=== PATIENT | female | born 1950 | race Caucasian/White ===

== ENCOUNTER → 2023-09-26 10:36 | Outpatient (REF) | payer MEDICARE, OTHER, SELFPAY ==
[2023-09-26 12:04] LABS: % Basophils 0.6 % (0-2); % Eosinophils 4.3 % (0-6); % Immature Granulocytes 0.4 % (0-0.5); % Lymphocytes 36.2 % (20.5-51.1); % Monocytes 6.4 % (1.7-9.3); % Neutrophils 52.1 % (42.2-75.2); Absolute Eosinophils 0.2 10^3/uL (0-0.7); Absolute Lymphocytes 1.8 10^3/uL (1.2-3.4); Absolute Monocytes 0.3 10^3/uL (0.1-0.6); Absolute Neutrophils 2.5 10^3/uL (1.4-6.5); Hematocrit 38.9 % (37.0-47.0); Hemoglobin 12.6 g/dL (12.0-16.0); Mean Corp Hgb Conc. 32.4 g/dL (33.0-37.0); Mean Corpuscular Volume 89.6 fL (81.0-99.0); Mean Platelet Volume 10.8 fL (7.4-10.4); Nucleated Red Blood Cells % 0 %; Platelet Count 222 10^3/uL (130-400); Red Blood Cell Count 4.34 10^6/uL (4.20-5.40); Red Cell Dist. Width 13.2 % (11.5-14.5); White Blood Cell Count 4.9 10^3/uL (4.8-10.8)
[2023-09-26 12:12] LABS: ALT (SGPT) 29 U/L (0-35); AST (SGOT) 32 U/L (14-36); Albumin 3.7 g/dl (3.5-5.0); Alkaline Phosphatase 105 U/L (38-126); Blood Urea Nitrogen 19 mg/dl (7-17); Calcium 9.2 mg/dl (8.4-10.2); Carbon Dioxide 30 mmol/L (22-30); Chloride 104 mmol/L (98-107); Glucose 89 mg/dl (70-99); Iron 83 ug/dl (37-170); Potassium 4.5 mmol/L (3.5-5.1); Sodium 136 mmol/L (135-145); Total Bilirubin 0.8 mg/dl (0.2-1.3); Total Protein 6.6 g/dl (6.3-8.2); eGFR > 60.00
[2023-09-26 12:21] LABS: Percent Saturation 24 % (20-50); Total Iron Binding Capacity 342 ug/dl (265-497)
[2023-09-26 12:40] LABS: Free T4 0.87 ng/dl (0.78-2.19)
[2023-09-26 12:54] LABS: TSH 1.45 uIU/ml (0.47-4.68)
[2023-09-26 13:23] LABS: Ferritin 22.8 ng/ml (11.1-264.0)
[2023-09-26 13:37] LABS: Vitamin B12 886 pg/ml (239-931)
== END ==
LOC: REG 10:36
PROVIDERS: ATTENDING PHYSICIAN Nurse Practitioner Family; FAMILY PHYSICIAN Internal Medicine Geriatric Medicine; REFERRING PHYSICIAN Obstetrics & Gynecology
DX: I83.891 Varicose veins of right lower extremity with other complications (principal); Z63.0 Problems in relationship with spouse or partner; E55.9 Vitamin D deficiency, unspecified; K76.89 Other specified diseases of liver; R53.83 Other fatigue; R19.7 Diarrhea, unspecified; S82.852A Displaced trimalleolar fracture of left lower leg, initial encounter for closed fracture
CPT/HCPCS: 36415; 80053; 82607; 82728; 83540; 83550; 84439; 84443; 85025

== ENCOUNTER → 2023-11-12 10:34 | Outpatient (REF) | payer MEDICARE, OTHER, SELFPAY | LOC: RCS 10:34 | PROVIDERS: ATTENDING PHYSICIAN Internal Medicine Cardiovascular Disease; FAMILY PHYSICIAN Internal Medicine | DX: R00.2 Palpitations (principal); I95.1 Orthostatic hypotension; I49.1 Atrial premature depolarization; I49.8 Other specified cardiac arrhythmias | CPT/HCPCS: 93017; 93350 ==

== ENCOUNTER → 2024-03-06 10:14 | Emergency (ER) | payer MEDICARE, OTHER, SELFPAY ==
[2024-03-06 10:20] VITALS: BP 135/62
--- NOTE | 2024-03-06 10:56 | ED.GENMED ---
History of Present Illness
General
Chief Complaint: Musculo-Skeletal Complaint
Source: patient
Time Seen by Provider: 03/06/24 10:30
History of Present Illness
History of Present Illness:
74-year-old female presenting to the emergency department for evaluation after tripping and injuring her right foot yesterday while playing with her grandchildren now noting pain along the distal fifth metatarsal and fifth digit. Pain worsens when
ambulating. Patient denies any previous history of injury or surgery. No other injuries sustained.
Past History
Past History
ED Past Medical History: None
ED Past Surgical History: , Orthopedic, Tonsilectomy and Other
Social History
Tobacco: Non-smoker
Alcohol: None
Drug: None
Personal:
Living: with family
Review of Systems
Review of Systems
All Other Systems: ROS reviewed and negative except as documented in HPI and ROS
Phy Exam
Physical Exam
Physical Exam:
GENERAL: Alert , in no apparent distress
EYE: conjunctiva clear
Head: Normocephalic atraumatic
NECK: Supple,
ENT: mmm.
LUNGS: no acute respiratory distress
NEUROLOGICAL: Alert and oriented
SKIN: Warm and dry, skin intact.
MUSCULOSKELETAL: Right lower extremity: No obvious deformity, erythema, edema, ecchymosis, abrasions or lacerations. There is some very mild tenderness along the plantar surface of the distal fifth metatarsal. Patient allows for full range of
motion of the foot and ankle without any pain. No focal tenderness over the medial or lateral malleolus, base of the fifth metatarsal or proximal tib-fib region. No laxity of the calcaneal tendon. Easily palpable pedal and tibial pulses. Cap
refill less than 2 seconds.
PSYCH: Normal and appropriate interaction.
Scores
Heart Failure Risk
Heart Failure Risk Score: Not Applicable
Heart Score for Chest Pain Patients
STEMI patient?: Not applicable
Withdrawal Assessment of Alcohol
Withdrawal Assessment Completed?: Not applicable
Course
Orders/Labs/Results
Orders:
Orders
03/06/24 10:24
CR Foot - Right Min 3 Views Urgent
Comment:
Reason For Exam: fall
Vital Signs
Initial and Last Documented VS:
Initial Vital Signs
Temp Pulse Resp BP Pulse Ox
97.8 F 60 19 135/62 100
03/06/24 10:20 03/06/24 10:20 03/06/24 10:20 03/06/24 10:20 03/06/24 10:20
Last Documented Vital Signs
Temp Pulse Resp BP Pulse Ox
97.8 F 60 19 135/62 100
03/06/24 10:20 03/06/24 10:20 03/06/24 10:20 03/06/24 10:20 03/06/24 10:20
MDM/Problems Addressed
Differential Diagnosis Includes:
Sprain, contusion, fracture
MDM/Problems Addressed:
74-year-old female presenting to the emergency department for evaluation after tripping and injuring her right foot. Patient states pain worsens when ambulating. She came to the ER to ensure no fracture. X-ray had been ordered from triage and
there is no fracture identified however patient does have some fairly significant arthritic changes. Patient ambulates with a cane and states she feels comfortable doing this. Advised NSAIDs/Tylenol as needed for pain. Patient states she can
follow-up with her orthopedist as needed if pain persists. Aware of return precautions to the ER but otherwise stable for discharge home.
*Radiology
Radiology exam reviewed: preliminary read by ED provider (No fracture, degenerative changes noted)
*Pulse Oximetry
Patient hypoxic: no
*Critical Care Note
Total Time (30-74mins, 75-104mins- exclusive of procedures): Not Applicable
ED Attending Note
-
Portions of this chart may have been created with voice recognition software.� Occasional wrong word or��sound alike� substitutions may have occurred due to the inherent limitations of voice recognition software.
Discharge Plan
Departure
Patient Disposition: Home (Routine Discharge)
Date of Disposition: 03/06/24
Time of Disposition: 10:56
Patient with high blood pressure during this ER visit?: No
Discharge Problem:
Right foot sprain
Instructions: Sprain (DC)
Prescriptions:
No Action
multivitamin Tablet
1 tab PO DAILY Qty: 0
ascorbic acid (vitamin C) [Vitamin C] 500 MG tablet
1,000 mg PO DAILY
cranberry fruit 500 MG tablet,chewable
500 mg PO DAILY
LJacquesacidoph, paracasei,B. lactis 1 EACH capsule
1 ea PO DAILY
vitamin K2 45 mcg Capsule
50 mcg PO DAILY Qty: 0
Estroven Cmplt Menopause Rlf 4 MG tablet
1 tab PO DAILY
latanoprost 0.005 % drops
1 drp BOTH EYES HS
calcium carbonate 500 mg calcium (1,250 mg) Tablet
500 mg PO DAILY
cholecalciferol (vitamin D3) [Vitamin D3] 25 mcg (1,000 unit) Tablet
50 mcg PO DAILY
aspirin 325 mg tablet
325 mg PO DAILY Qty: 30 0RF
sennosides-docusate sodium [Senna Plus] 8.6-50 mg Tablet
1 tab PO BID Qty: 30 0RF
acetaminophen [Pain Relief ES (acetaminophen)] 500 mg Tablet
1,000 mg PO TID Qty: 100 0RF
oxycodone 5 mg Tablet
5 mg PO Q4HPRN PRN (Reason: moderate pain) Qty: 20 0RF
Referrals:
Daryl Lopez MD [Family Provider] -
Interventions
Interventions:
*Risk Screen - Suicide Last Done: 03/06/24 10:20
*General Assessment Last Done: 03/06/24 10:20
*Neglect/Abuse Screening Last Done: 03/06/24 10:20
Discharge Date and Time
Print Language: UPPER SORBIAN
== END | disposition home or self-care (01) ==
LOC: EMR 10:14
PROVIDERS: EMERGENCY PHYSICIAN Emergency Medicine; FAMILY PHYSICIAN Internal Medicine Geriatric Medicine
DX: S93.601A Unspecified sprain of right foot, initial encounter (principal); W01.0XXA Fall on same level from slipping, tripping and stumbling without subsequent striking against object, initial encounter; Y93.89 Activity, other specified; Z79.82 Long term (current) use of aspirin; Z88.1 Allergy status to other antibiotic agents; Z88.2 Allergy status to sulfonamides
CPT/HCPCS: 99283; 73630

== ENCOUNTER → 2024-04-12 09:40 | Outpatient (REF) | payer MEDICARE, OTHER, SELFPAY ==
[2024-04-12 10:56] LABS: % Basophils 0.7 % (0-2); % Eosinophils 2.5 % (0-6); % Immature Granulocytes 0.2 % (0-0.5); % Lymphocytes 34.3 % (20.5-51.1); % Monocytes 4.9 % (1.7-9.3); % Neutrophils 57.4 % (42.2-75.2); Absolute Eosinophils 0.1 10^3/uL (0-0.7); Absolute Lymphocytes 1.5 10^3/uL (1.2-3.4); Absolute Monocytes 0.2 10^3/uL (0.1-0.6); Absolute Neutrophils 2.5 10^3/uL (1.4-6.5); Hematocrit 39.4 % (37.0-47.0); Hemoglobin 12.8 g/dL (12.0-16.0); Mean Corp Hgb Conc. 32.5 g/dL (33.0-37.0); Mean Corpuscular Hgb 28.6 pg (27.0-31.0); Mean Corpuscular Volume 88.1 fL (81.0-99.0); Nucleated Red Blood Cells % 0 %; Platelet Count 169 10^3/uL (130-400); Red Blood Cell Count 4.47 10^6/uL (4.20-5.40); Red Cell Dist. Width 13.2 % (11.5-14.5); White Blood Cell Count 4.3 10^3/uL (4.8-10.8)
[2024-04-12 11:50] LABS: ALT (SGPT) 32 U/L (0-35); AST (SGOT) 42 U/L (14-36); Alkaline Phosphatase 75 U/L (38-126); Blood Urea Nitrogen 18 mg/dl (7-17); Calcium 9.4 mg/dl (8.4-10.2); Carbon Dioxide 29 mmol/L (22-30); Chloride 102 mmol/L (98-107); Glucose 88 mg/dl (70-99); Iron 97 ug/dl (37-170); Potassium 4.5 mmol/L (3.5-5.1); Sodium 138 mmol/L (135-145); Total Bilirubin 0.9 mg/dl (0.2-1.3); Total Protein 6.5 g/dl (6.3-8.2); eGFR > 60.00
[2024-04-12 11:59] LABS: Percent Saturation 30 % (20-50); Total Iron Binding Capacity 321 ug/dl (265-497)
[2024-04-12 12:06] LABS: Free T3 3.14 pg/ml (2.77-5.27)
[2024-04-12 12:24] LABS: Ferritin 31.2 ng/ml (11.1-264.0)
[2024-04-12 12:55] LABS: Vitamin B12 657 pg/ml (239-931)
[2024-04-13 18:14] LABS: Thyroglobulin 9.1 ng/mL (1.3-31.8); Thyroglobulin Antibodies <0.9 IU/mL (0.0-4.0)
== END ==
LOC: REG 09:40
PROVIDERS: ATTENDING PHYSICIAN Obstetrics & Gynecology; FAMILY PHYSICIAN Internal Medicine Geriatric Medicine
DX: E07.9 Disorder of thyroid, unspecified (principal); E55.9 Vitamin D deficiency, unspecified; D64.9 Anemia, unspecified; R89.9 Unspecified abnormal finding in specimens from other organs, systems and tissues; E53.9 Vitamin B deficiency, unspecified
CPT/HCPCS: 36415; 80053; 82306; 82607; 82728; 82746; 83540; 83550; 84432; 84443; 84481; 85025; 86376; 86800

== ENCOUNTER 2024-08-03 06:15 | Day surgery (SDC) | payer MEDICARE, OTHER, SELFPAY | END 2024-08-03 10:50 | disposition home or self-care (01) | LOC: GI 06:15 | PROVIDERS: ATTENDING PHYSICIAN Internal Medicine Gastroenterology | DX: Z12.11 Encounter for screening for malignant neoplasm of colon (principal); K57.30 Diverticulosis of large intestine without perforation or abscess without bleeding; K64.8 Other hemorrhoids; Z80.0 Family history of malignant neoplasm of digestive organs | CPT/HCPCS: G0105 ==

== ENCOUNTER → 2024-08-07 10:37 | Emergency (ER) | payer MEDICARE, OTHER, SELFPAY ==
--- NOTE | 2024-08-07 11:05 | ED.GENMED ---
ED Provider Triage
-
Patient seen by provider in Triage?: Seen in Triage
Attestation: A medical screening examination has been initiated by a qualified medical provider. Based on the assessment performed at this time, it has been determined that an emergent medical condition may exist and the patient has been informed
that further medical evaluation and possible additional diagnostic testing may be needed.
HPI: 74-year-old female presenting to the emergency department for evaluation at request of her primary care provider after she started to feel some palpitations earlier this morning around 3:30 AM and her Apple Watch monitor noticed she was in
atrial fibrillation which lasted until about 9 AM and broke. Patient follows with loftsman, Dr. Gan. She is not on any anticoagulants. Will check labs and EKG. Patient is otherwise currently hemodynamically stable
GENERAL: Alert , in no apparent distress
EYE: No visual abnormalities.
NECK: Trachea midline
ENT: No visible abnormalities.
LUNGS: No acute respiratory distress
NEUROLOGICAL: Alert and oriented
SKIN: Skin intact. No visible changes.
MUSCULOSKELETAL: Moving extremities normally
PSYCH: Normal and appropriate interaction.
This is a medical evaluation conducted in person to initiate diagnostic evaluation and provide initial therapeutics. Please see further documentation by the treating clinician.
History of Present Illness
General
Chief Complaint: Heart Rate Problem
Source: patient
Time Seen by Provider: 08/07/24 12:24
History of Present Illness
History of Present Illness:
74-year-old female presenting to the emergency department for evaluation after she had a electronic device tell her she went into atrial fibrillation around 3:30 AM which persisted until about 9 AM accompanied with palpitations and an abnormal
sensation in her chest which by the time she got to the arm and had fully resolved. She contacted her primary care provider who recommended she come to the ER for further evaluation. Patient denies any history of atrial fibrillation. She does not
take any anticoagulant medications. Denies chest pain, shortness of breath, diaphoresis, exertional dyspnea orthopnea. No recent illnesses. No recent travel. No other concerns.
Past History
Past History
ED Past Medical History: None
ED Past Surgical History: , Orthopedic, Tonsilectomy and Other
Social History
Tobacco: Non-smoker
Alcohol: None
Drug: None
Personal:
Living: with family
Review of Systems
Review of Systems
All Other Systems: ROS reviewed and negative except as documented in HPI and ROS
Phy Exam
Physical Exam
Physical Exam:
GENERAL: Alert , in no apparent distress
EYE: conjunctiva clear
NECK: Supple, no significant adenopathy.
ENT: o/p clr, mmm.
CARDIAC: Regular rate and rhythm
LUNGS: Clear breath sounds bilaterally, no acute respiratory distress, no wheezes/rales/rhonchi
NEUROLOGICAL: Alert and oriented
SKIN: Warm and dry, skin intact.
MUSCULOSKELETAL: well perfused.
PSYCH: Normal and appropriate interaction.
Scores
Heart Failure Risk
Heart Failure Risk Score: Not Applicable
Heart Score for Chest Pain Patients
STEMI patient?: Not applicable
Withdrawal Assessment of Alcohol
Withdrawal Assessment Completed?: Not applicable
Course
Orders/Labs/Results
Orders:
Orders
08/07/24 11:06
Electrocardiogram (*1) Urgent
Reason for Study: Atrial Fibrillation
EKG- Treatment ONCE
08/07/24 11:28
Complete Blood Count/With Diff Urgent
Comprehensive Metabolic Panel Urgent
Magnesium Urgent
TSH Urgent
Abnormal Lab Results
08/07/24
11:28
MCHC 32.8 L g/dL
(33.0-37.0)
MPV 10.8 H fL
(7.4-10.4)
BUN 21 H mg/dl
(7-17)
08/07/24 11:28
08/07/24 11:28
Vital Signs
Initial and Last Documented VS:
Initial Vital Signs
Temp Pulse Resp BP Pulse Ox
98.2 F 65 16 113/71 98
08/07/24 11:06 08/07/24 11:06 08/07/24 11:06 08/07/24 11:06 08/07/24 11:06
Last Documented Vital Signs
Temp Pulse Resp BP Pulse Ox
98.2 F 60 16 112/56 97
08/07/24 11:06 08/07/24 12:48 08/07/24 11:06 08/07/24 12:48 08/07/24 12:48
MDM/Problems Addressed
Differential Diagnosis Includes:
Atrial fibrillation or other cardiac dysrhythmia, PAC/PVC, electrolyte derangement
MDM/Problems Addressed:
74-year-old female presenting to the ER for evaluation of palpitations with her Apple watch or other device telling her she may be in atrial fibrillation. EKG performed which shows normal sinus rhythm with PACs. At this time patient is not
exhibiting any evidence for atrial fibrillation. Will check labs and monitor on telemetry. Discussed with patient that if she were in a paroxysmal atrial fibrillation her [id number] score would be 2 and there would be potential need for likely
anticoagulation however given that the event was not captured on a burn out scarfing operator or EKG that at this time we would potentially need to defer treatment and have her follow-up closely with her loftsman and would potentially need a Holter
monitor. Patient expressed understanding and agreed with this plan. Disposition pending labs and telemetry monitoring
*Pulse Oximetry
Patient hypoxic: no
*EKG
Interpreted by ED Provider?: Yes
Heart Rate: 61
Rate: normal
Rhythm: sinus and PAC's
[place]: normal axis
Ischemia: no ischemia
*Procurement Clerk Interpretation
Rate: normal
Rhythm: sinus
*Critical Care Note
Total Time (30-74mins, 75-104mins- exclusive of procedures): Not Applicable
Patient Management
Escalation/DeEscalation of care consider admission/obs:
Patient's EKG and workup is largely unremarkable outside of occasional PACs. This could potentially explain patient's symptoms however I did express to patient the importance of following up with her cardiology team as she will likely need a Holter
monitor. Chest pain hotline notified to expedite a follow-up for the patient. She is aware of return precautions. Stable for discharge home.
ED Attending Note
-
Portions of this chart may have been created with voice recognition software.� Occasional wrong word or��sound alike� substitutions may have occurred due to the inherent limitations of voice recognition software.
Discharge Plan
Departure
Patient Disposition: Home (Routine Discharge)
Date of Disposition: 08/07/24
Time of Disposition: 13:01
Patient with high blood pressure during this ER visit?: No
Discharge Problem:
Palpitations
Instructions: Palpitations (DC), Chest Pain DCA Follow Up
Prescriptions:
No Action
multivitamin Tablet
1 tab PO DAILY Qty: 0
ascorbic acid (vitamin C) [Vitamin C] 500 MG tablet
1,000 mg PO DAILY
cranberry fruit 500 MG tablet,chewable
500 mg PO DAILY
L.acidoph,paracasei,B.animalis 1 EACH capsule
1 ea PO DAILY
vitamin K2 45 mcg Capsule
50 mcg PO DAILY Qty: 0
Estroven Cmplt Menopause Rlf 4 MG tablet
1 tab PO DAILY
latanoprost 0.005 % drops
1 drp BOTH EYES HS
calcium carbonate 500 mg calcium (1,250 mg) Tablet
500 mg PO DAILY
cholecalciferol (vitamin D3) [Vitamin D3] 25 mcg (1,000 unit) Tablet
50 mcg PO DAILY
aspirin 325 mg tablet
325 mg PO DAILY Qty: 30 0RF
sennosides-docusate sodium [Senna Plus] 8.6-50 mg Tablet
1 tab PO BID Qty: 30 0RF
acetaminophen [Pain Relief ES (acetaminophen)] 500 mg Tablet
1,000 mg PO TID Qty: 100 0RF
oxycodone 5 mg Tablet
5 mg PO Q4HPRN PRN (Reason: moderate pain) Qty: 20 0RF
Referrals:
Daryl Lopez MD [Family Provider] -
Interventions
Interventions:
*Risk Screen - Suicide Last Done: 08/07/24 11:06
*Neglect/Abuse Screening Last Done: 08/07/24 11:06
Discharge Date and Time
Print Language: HEBREW
[2024-08-07 11:06] VITALS: BP 113/71
[2024-08-07 11:50] LABS: % Basophils 0.6 % (0-2); % Eosinophils 0.8 % (0-6); % Immature Granulocytes 0.2 % (0-0.5); % Lymphocytes 27.2 % (20.5-51.1); % Monocytes 5.5 % (1.7-9.3); % Neutrophils 65.7 % (42.2-75.2); Absolute Lymphocytes 1.4 10^3/uL (1.2-3.4); Absolute Monocytes 0.3 10^3/uL (0.1-0.6); Absolute Neutrophils 3.5 10^3/uL (1.4-6.5); Hematocrit 41.2 % (37.0-47.0); Hemoglobin 13.5 g/dL (12.0-16.0); Mean Corp Hgb Conc. 32.8 g/dL (33.0-37.0); Mean Corpuscular Hgb 29.5 pg (27.0-31.0); Mean Corpuscular Volume 90.2 fL (81.0-99.0); Mean Platelet Volume 10.8 fL (7.4-10.4); Nucleated Red Blood Cells % 0 %; Platelet Count 183 10^3/uL (130-400); Red Blood Cell Count 4.57 10^6/uL (4.20-5.40); White Blood Cell Count 5.3 10^3/uL (4.8-10.8)
[2024-08-07 11:58] LABS: ALT (SGPT) 31 U/L (0-35); AST (SGOT) 33 U/L (14-36); Albumin 4.2 g/dl (3.5-5.0); Alkaline Phosphatase 69 U/L (38-126); Blood Urea Nitrogen 21 mg/dl (7-17); Calcium 9.2 mg/dl (8.4-10.2); Carbon Dioxide 30 mmol/L (22-30); Chloride 103 mmol/L (98-107); Glucose 97 mg/dl (70-99); Magnesium 1.8 mg/dl (1.6-2.3); Potassium 4.5 mmol/L (3.5-5.1); Sodium 140 mmol/L (135-145); Total Protein 6.8 g/dl (6.3-8.2); eGFR > 60.00
[2024-08-07 12:29] LABS: TSH 1.57 uIU/ml (0.47-4.68)
[2024-08-07 12:48] VITALS: BP 112/56
== END | disposition home or self-care (01) ==
LOC: EMR 10:37
PROVIDERS: Physician Assistant Medical; EMERGENCY PHYSICIAN Emergency Medicine; FAMILY PHYSICIAN Internal Medicine Geriatric Medicine
DX: R00.2 Palpitations (principal); I48.91 Unspecified atrial fibrillation
CPT/HCPCS: 99283; 80053; 83735; 84443; 85025; 93005

== ENCOUNTER → 2024-08-25 07:46 | Outpatient (REF) | payer MEDICARE, OTHER, SELFPAY ==
[2024-08-25 09:36] LABS: Urine Albumin Negative (Neg - Trace); Urine Bilirubin Negative (Negative); Urine Character Clear (Clear); Urine Color Yellow; Urine Glucose Negative (Negative); Urine Ketone Negative (Negative); Urine Leukocyte Negative (Negative); Urine Nitrite Negative (Negative); Urine Occult Blood Negative (Negative); Urine Urobilinogen Negative (Neg - 1+)
[2024-08-25 09:42] LABS: % Basophils 0.5 % (0-2); % Eosinophils 0.9 % (0-6); % Immature Granulocytes 0.4 % (0-0.5); % Lymphocytes 26.4 % (20.5-51.1); % Monocytes 4.6 % (1.7-9.3); % Neutrophils 67.2 % (42.2-75.2); Absolute Eosinophils 0.1 10^3/uL (0-0.7); Absolute Lymphocytes 1.5 10^3/uL (1.2-3.4); Absolute Monocytes 0.3 10^3/uL (0.1-0.6); Absolute Neutrophils 3.8 10^3/uL (1.4-6.5); Hematocrit 42.5 % (37.0-47.0); Hemoglobin 13.6 g/dL (12.0-16.0); Mean Corpuscular Hgb 28.8 pg (27.0-31.0); Nucleated Red Blood Cells % 0 %; Platelet Count 176 10^3/uL (130-400); Red Blood Cell Count 4.72 10^6/uL (4.20-5.40); Red Cell Dist. Width 12.9 % (11.5-14.5); White Blood Cell Count 5.7 10^3/uL (4.8-10.8)
[2024-08-25 10:04] LABS: ALT (SGPT) 30 U/L (0-35); AST (SGOT) 32 U/L (14-36); Albumin 4.1 g/dl (3.5-5.0); Alkaline Phosphatase 70 U/L (38-126); Blood Urea Nitrogen 21 mg/dl (7-17); Calcium 9.3 mg/dl (8.4-10.2); Carbon Dioxide 29 mmol/L (22-30); Chloride 101 mmol/L (98-107); GGTP 22 U/L (12-43); Glucose 88 mg/dl (70-99); HDL Cholesterol 73 mg/dl; LDL Cholesterol, Calculated 120 mg/dl; Potassium 4.6 mmol/L (3.5-5.1); Sodium 139 mmol/L (135-145); Total Bilirubin 0.9 mg/dl (0.2-1.3); Total Cholesterol 204 mg/dl (50-199); Total Protein 6.8 g/dl (6.3-8.2); Triglyceride 55 mg/dl (10-149); Very Low Density Lipoprotein 11 mg/dl (0-30); eGFR > 60.00
[2024-08-25 10:29] LABS: TSH Reflex To Free T4 1.34 uIU/ml (0.47-4.68)
== END ==
LOC: REG 07:46
PROVIDERS: ATTENDING PHYSICIAN Internal Medicine Geriatric Medicine
DX: I10 Essential (primary) hypertension (principal); I83.891 Varicose veins of right lower extremity with other complications; E55.9 Vitamin D deficiency, unspecified; R53.83 Other fatigue; R19.7 Diarrhea, unspecified; I95.1 Orthostatic hypotension; R39.9 Unspecified symptoms and signs involving the genitourinary system; R00.2 Palpitations; Z99.89 Dependence on other enabling machines and devices; R30.0 Dysuria; Z13.89 Encounter for screening for other disorder
CPT/HCPCS: 36415; 80053; 80061; 81003; 82306; 82977; 84443; 85025

== ENCOUNTER → 2024-08-27 08:15 | Outpatient (REF) | payer MEDICARE, OTHER, SELFPAY | LOC: RCS 08:15 | PROVIDERS: ATTENDING PHYSICIAN Internal Medicine Cardiovascular Disease; FAMILY PHYSICIAN Internal Medicine Geriatric Medicine | DX: I34.1 Nonrheumatic mitral (valve) prolapse (principal) | CPT/HCPCS: 93306 ==

== ENCOUNTER → 2024-09-01 12:06 | Outpatient (REF) | payer MEDICARE, OTHER, SELFPAY | LOC: REG 12:06 | PROVIDERS: ATTENDING PHYSICIAN Internal Medicine Geriatric Medicine | DX: I10 Essential (primary) hypertension (principal); I83.891 Varicose veins of right lower extremity with other complications; E55.9 Vitamin D deficiency, unspecified; R53.83 Other fatigue; R19.7 Diarrhea, unspecified; I95.1 Orthostatic hypotension; R39.9 Unspecified symptoms and signs involving the genitourinary system; R00.2 Palpitations; Z99.89 Dependence on other enabling machines and devices; R30.0 Dysuria; Z13.89 Encounter for screening for other disorder | CPT/HCPCS: 81050; 83018 ==

== ENCOUNTER → 2024-10-22 11:03 | Outpatient (REF) | payer MEDICARE, OTHER, SELFPAY ==
[2024-10-22 14:21] LABS: Glycohemoglobin (HgbA1c) 5.8 % (4.0-5.6)
[2024-10-22 14:31] LABS: Free T4 0.94 ng/dl (0.78-2.19)
[2024-10-22 14:45] LABS: TSH 1.35 uIU/ml (0.47-4.68)
[2024-10-22 15:20] LABS: Folate > 20.0 ng/ml (2.76-20); Vitamin B12 828 pg/ml (239-931)
== END ==
LOC: REG 11:03
PROVIDERS: ATTENDING PHYSICIAN Internal Medicine Geriatric Medicine
DX: Z79.899 Other long term (current) drug therapy (principal); R53.83 Other fatigue; E03.9 Hypothyroidism, unspecified; D50.8 Other iron deficiency anemias
CPT/HCPCS: 36415; 82607; 82746; 83036; 84439; 84443

== ENCOUNTER → 2024-11-05 15:08 | Outpatient (REF) | payer MEDICARE, OTHER, SELFPAY | LOC: WDC 15:08 | PROVIDERS: ATTENDING PHYSICIAN Internal Medicine Geriatric Medicine | DX: Z12.31 Encounter for screening mammogram for malignant neoplasm of breast (principal) | CPT/HCPCS: 77063; 77067 ==

== ENCOUNTER 2024-12-26 05:28 | Emergency (ER) | payer MEDICARE, OTHER, SELFPAY ==
[2024-12-26] VITALS (20 sets, daily range): BP systolic 92–152; BP diastolic 49–100
[2024-12-26 05:53] LABS: % Basophils 0.6 % (0-2); % Eosinophils 2.2 % (0-6); % Immature Granulocytes 0.2 % (0-0.5); % Lymphocytes 47.1 % (20.5-51.1); % Monocytes 5.9 % (1.7-9.3); Absolute Eosinophils 0.1 10^3/uL (0-0.7); Absolute Lymphocytes 2.6 10^3/uL (1.2-3.4); Absolute Monocytes 0.3 10^3/uL (0.1-0.6); Absolute Neutrophils 2.4 10^3/uL (1.4-6.5); Hematocrit 41.7 % (37.0-47.0); Hemoglobin 13.7 g/dL (12.0-16.0); Mean Corp Hgb Conc. 32.9 g/dL (33.0-37.0); Mean Corpuscular Hgb 29.7 pg (27.0-31.0); Mean Corpuscular Volume 90.3 fL (81.0-99.0); Mean Platelet Volume 10.7 fL (7.4-10.4); Nucleated Red Blood Cells % 0 %; Platelet Count 160 10^3/uL (130-400); Red Blood Cell Count 4.62 10^6/uL (4.20-5.40); Red Cell Dist. Width 12.7 % (11.5-14.5); White Blood Cell Count 5.4 10^3/uL (4.8-10.8)
[2024-12-26 06:05] LABS: ALT (SGPT) 51 U/L (0-35); AST (SGOT) 51 U/L (14-36); Albumin 4.5 g/dl (3.5-5.0); Alkaline Phosphatase 78 U/L (38-126); Blood Urea Nitrogen 20 mg/dl (7-17); Calcium 9.6 mg/dl (8.4-10.2); Carbon Dioxide 29 mmol/L (22-30); Chloride 108 mmol/L (98-107); Glucose 93 mg/dl (70-99); Potassium 4.1 mmol/L (3.5-5.1); Sodium 142 mmol/L (135-145); Total Bilirubin 0.8 mg/dl (0.2-1.3); Total Protein 7.4 g/dl (6.3-8.2); eGFR > 60.00
[2024-12-26 06:16] LABS: Troponin I < 0.012 ng/ml
--- NOTE | 2024-12-26 06:35 | ED.GENMED ---
History of Present Illness
General
Chief Complaint: Heart Rate Problem
Time Seen by Provider: 12/26/24 06:36
History of Present Illness
History of Present Illness:
TIME OF INITIAL ENCOUNTER: 6:40 AM
HPI: Overnight, the patient started having palpitations. In the past she has had at least questionable signs of atrial fibrillation based on when she used a Ntractive mobile device however it was not definitive. She is not on anticoagulation. She
more definitively has palpitations now. She has no shortness of breath. She does not have any sensation of syncope/near syncope. She has no chest pain. She states she has had issues with low blood pressure in the past.
EXAM:
GENERAL: Well appearing in no distress
HEENT: Moist oral mucosa
CARDIOVASCULAR: No murmurs, tachycardic heart rate, irregular rhythm, No chest wall tenderness
PULMONARY: No respiratory distress, breath sounds are clear and equal
ABDOMEN: Soft with no peritoneal signs, no tenderness
NEUROLOGIC: Excellent strength all extremities, no coordination deficits
PSYCHIATRIC: Appropriate mental status, normal insight and judgement
EXTREMITIES: Nontender, no edema, moves all extremities equally
SKIN: No rash, no lesions
NUMBER AND COMPLEXITY OF PROBLEMS ADDRESSED AT THE ENCOUNTER
� Chronic conditions affecting care: Has had low blood pressure readings in the past, migraines
� Acute Exacerbation and/or Progression of Chronic Illness: This is an acute problem
� Differential Diagnosis includes: Rapid atrial fibrillation, electrolyte abnormality, thyroid disease ruled out a couple months ago
AMOUNT AND/OR COMPLEXITY OF DATA TO BE REVIEWED AND ANALYZED
� I performed an independent evaluation of and my interpretation is:
EKG: A-fib 144, normal axis, nonspecific ST abnormality, A-fib is new in comparison to 08/07/2024
CT:
X-rays:
Laboratory Studies: CBC, chemistries unremarkable, troponin less than 0.012
Other:
� Review of other/old records: The patient was seen here in July with palpitations and at that time there was some concern that she may be in A-fib, since it was not definitively confirmed, she was not placed on
anticoagulation despite [id number] score of 2.
� Clinical information was obtained by an independent historian: I spoke to at bedside
� Prescriptions/Medications Considered but not given:
� Further testing considered but not performed:
RISK OF COMPLICATIONS AND/OR MORBIDITY OR MORTALITY OF PATIENT MANAGEMENT
� Social determinants of health affecting care: Lives at home
� Discussion with other providers: Communicated with Dr. Bone at around 8:20 AM and she will evaluate the patient
� Escalation of care including admission/observation vs risk of discharge considered: The patient presents with palpitations found to be in rapid A-fib. She is not currently anticoagulated. Will start Cardizem bolus and drip
and reassess.
ANY OTHER UPDATES:
The patient was initially given Cardizem bolus and drip. On reassessment at 8 AM, her rates are now in the 90s. Palpitations persist but are milder.
9:36 AM: The patient had procedural sedation for electrical cardioversion she successfully converted to a sinus rhythm in 1 attempt. Sinus with frequent ectopy noted postprocedure. She is to follow-up with Dr. Slaughter as an outpatient.
10:20 AM: The patient remains in sinus rhythm but continues to have ectopy. Overall she is improved. Some
Past History
Past History
ED Past Medical History: None
ED Past Surgical History: , Orthopedic, Tonsilectomy and Other
Social History
Tobacco: Non-smoker
Alcohol: None
Drug: None
Personal:
Living: with family
Phy Exam
Physical Exam
Physical Exam:
See HPI
Course
Orders/Labs/Results
Orders:
Orders
12/26/24 05:30
Electrocardiogram (*1) Urgent
Reason for Study: Atrial Fibrillation
EKG- Treatment ONCE
12/26/24 05:43
Complete Blood Count/With Diff Urgent
Comprehensive Metabolic Panel Urgent
Troponin I Urgent
12/26/24 06:42
Diltiazem HCl [Cardizem] 10 mg IV NOW STA
12/26/24 06:45
Diltiazem 125 mg/125 ml Nss [Cardizem] 125 mg in 125 ml IV PER PROTOCOL
Initial dose in mg/hr, then titrate:: 5
Titrate to keep:: Heart rate 80-100 bpm
Titrate by mg/hr:: 5 mg/hr
Frequency of titrations (minutes):: 15
Maximum dose in mg/hr:: 15
12/26/24 09:21
Propofol [Diprivan] 20 ml .ROUTE .STK-MED
12/26/24 09:40
EKG [Electrocardiogram (*1)] Urgent
Reason for Study: Atrial Fibrillation
EKG- Treatment ONCE
12/26/24 09:48
Apixaban [Eliquis] 5 mg PO NOW STA
Abnormal Lab Results
12/26/24
05:43
MCHC 32.9 L g/dL
(33.0-37.0)
MPV 10.7 H fL
(7.4-10.4)
Chloride 108 H mmol/L
(98-107)
BUN 20 H mg/dl
(7-17)
AST 51 H U/L
(14-36)
ALT 51 H U/L
(0-35)
12/26/24 05:43
12/26/24 05:43
Vital Signs
Initial and Last Documented VS:
Initial Vital Signs
Temp Pulse Resp BP Pulse Ox
36.8 C 135 16 125/100 99
12/26/24 05:34 12/26/24 05:34 12/26/24 05:34 12/26/24 05:34 12/26/24 05:34
Last Documented Vital Signs
Temp Pulse Resp BP Pulse Ox
36.6 C 77 18 111/73 96
12/26/24 09:36 12/26/24 10:17 12/26/24 10:17 12/26/24 10:17 12/26/24 10:17
Procedures
Cardioversion
Indication:: Afib
Performed by:: Me, Dr. Gibbons
Synchronized?: Yes
Energy Used: 200 joules
Number of attempts: 1
Successful?: Yes
ASA Risk Score: Class II
Any reaction or bad outcome to prior sedation/anesthesia?: No history of a reaction
Sedation level to be attained: moderate
Chart and allergies reviewed: Yes
Patient reassessed prior to sedation: Yes
Time out completed at (validating right patient & procedure): 09:36
History of difficult intubation: No
Airway free of obstruction: Yes
Patient has a gag reflex: Yes
Patient is able to open mouth: Yes
Patient has no dentures: Yes
Patient has no loose teeth: Yes
Medication administered by Provider during Moderate Sedation: IV Propofol (mg)
Total dose administered: 80
Time drug administered: 09:36
Start Time: 09:36
Stop Time: 09:47
*Critical Care Note
Total Time (30-74mins, 75-104mins- exclusive of procedures): 60min
comment:
The patient arrived in rapid atrial fibrillation. She was placed on Cardizem bolus and drip which improved the heart rate. I had discussions with Dr. Bone and we agreed to pursue elective cardioversion. Her vital signs were very closely
monitored in the Emergency Department. She was reassessed multiple times.
ED Attending Note
-
Portions of this chart may have been created with voice recognition software.� Occasional wrong word or��sound alike� substitutions may have occurred due to the inherent limitations of voice recognition software.
Discharge Plan
Departure
Patient Disposition: Home (Routine Discharge)
Date of Disposition: 12/26/24
Time of Disposition: 09:46
Patient with high blood pressure during this ER visit?: Yes
Discharge Problem:
Atrial fibrillation
Instructions: Atrial Fibrillation (DC), BLOOD PRESSURE
Prescriptions:
New
Eliquis 5 mg tablet
5 mg PO BID Qty: 60 0RF
diltiazem HCl [Cartia XT] 120 mg capsule,extended release 24hr
120 mg PO DAILY Qty: 30 0RF
No Action
multivitamin Tablet
1 tab PO DAILY Qty: 0
ascorbic acid (vitamin C) [Vitamin C] 500 MG tablet
1,000 mg PO DAILY
cranberry fruit 500 MG tablet,chewable
500 mg PO DAILY
L.acidoph,paracasei,B.animalis 1 EACH capsule
1 ea PO DAILY
vitamin K2 45 mcg Capsule
50 mcg PO DAILY Qty: 0
Estroven Cmplt Menopause Rlf 4 MG tablet
1 tab PO DAILY
latanoprost 0.005 % drops
1 drp BOTH EYES HS
calcium carbonate 500 mg calcium (1,250 mg) Tablet
500 mg PO DAILY
cholecalciferol (vitamin D3) [Vitamin D3] 25 mcg (1,000 unit) Tablet
50 mcg PO DAILY
aspirin 325 mg tablet
325 mg PO DAILY Qty: 30 0RF
sennosides-docusate sodium [Senna Plus] 8.6-50 mg Tablet
1 tab PO BID Qty: 30 0RF
acetaminophen [Pain Relief ES (acetaminophen)] 500 mg Tablet
1,000 mg PO TID Qty: 100 0RF
oxycodone 5 mg Tablet
5 mg PO Q4HPRN PRN (Reason: moderate pain) Qty: 20 0RF
Referrals:
Daryl Lopez MD [Family Provider, Internal Medicine]
Gabriela Gan DO [Active, Cardiology]
Activity Restrictions/Additional Instructions:
I had Dr. Bone, the cargo service agent with Dr. Gan evaluate you in the emerge department. He recommends electrocardioversion. We performed this without any difficulty in 1 attempt. We also recommend that you go on Cardizem to help keep you
out of atrial fibrillation and control the heart rate and start Eliquis to prevent a stroke.
Interventions
Interventions:
*Risk Screen - Suicide Last Done: 12/26/24 05:34
*General Assessment Last Done: 12/26/24 05:34
*Neglect/Abuse Screening Last Done: 12/26/24 05:34
ED- Cardiac Assessment Last Done: 12/26/24 06:07
ED- Pulmonary Assessment Last Done: 12/26/24 06:07
Discharge Date and Time
Print Language: MARTINIQUAIS
[2024-12-26] MEDS: CARDIZEM 10 MG IV (07:08)
[2024-12-26] MEDS: CARDIZEM 125 IV (07:09)
--- NOTE | 2024-12-26 09:42 | CON.CAR ---
Consultation
Consultation Request
Date/Time Consultation Requested: December 26, 2024
Date/Time Consultation Performed: December 26, 2024
Requesting Provider: Emergency department
Performing Provider: Dr. Malachi Bone
Reason for Consultation: Symptomatic atrial fibrillation with rapid ventricular rate
Medical History
-
Chief Complaint: Heart racing, palpitations and fatigue
History of Present Illness:
She presents to the emergency department early this morning with less than 24-hour onset of heart racing and palpitations.
She notes that she has had intermittent palpitations over the past several months. She was previously evaluated [facility] emergency department in July 2024 when she had approximately 6 hours of palpitations associated with some mild
chest discomfort. This was on August 07, 2024. She checked her [employer] mobile which indicated possible atrial fibrillation. In the emergency department she was found to be in sinus rhythm with PACs. A follow-up outpatient monitor for several
days did not find atrial fibrillation but instead found brief episodes of PAT and occasional PACs. Laboratory evaluation included thyroid function studies which were normal. She had an echocardiogram which showed normal biventricular size and
function with no wall motion abnormalities, stable mild posterior mitral valve prolapse with mild mitral regurgitation. Small pericardial effusion.
Today in the emergency department she is found to be in atrial fibrillation with rapid ventricular rate heart rates up to 140 bpm.
She was started on intravenous Cardizem which has helped control her heart rates.
She tells me with heart rate control she feels better but not perfect.
No chest pain or shortness of breath.
B[facility] CAM for 7 days placed 08/13/2024: Sinus rhythm with average heart rate 64 bpm, range 41-112 bpm.� No significant AV block or pauses.� No atrial fibrillation or flutter.� 29 episodes of atrial tachycardia, the longest 8 beats.� Occasional PACs,
burden 2.7%.� Rare PVCs, less than 0.1%.� Patient triggered events correlated with PACs or sinus rhythm.
2D echocardiogram 08/27/2024 shows normal biventricular size and systolic function with normal LV wall thickness and normal diastolic function.� LV ejection fraction visually estimated 55-60%.� Mild prolapse of the posterior mitral valve leaflet with
mild MR.� Trileaflet thickened aortic valve consistent with sclerosis with trace AI.� Small pericardial effusion.� No evidence of pulmonary pretension, estimated pulmonary artery systolic pressure 29 mmHg.
Past medical history:
Peripheral venous insufficiency
Degenerative joint disease
Social History
Tobacco: Non-Smoker
Alcohol: None
Drug: None
Personal:
Living: With Family
Family History
Family History: Reviewed & Not Pertinent
Allergies / Home Medications
Allergy/AdvReac Type Severity Reaction Status Date / Time
sulfamethoxazole (From Allergy Hives Verified 08/07/24 11:05
Bactrim)
trimethoprim (From Bactrim) Allergy Hives Verified 08/07/24 11:05
�Medication �Instructions �Recorded �Confirmed �Type
L.acidoph,paracasei,B.animalis 10 1 ea PO DAILY Gastrointestinal 04/13/21 05/21/23 History
billion cell capsule Issue
ascorbic acid (vitamin C) 500 mg 1,000 mg PO DAILY Supplement 04/13/21 05/21/23 History
tablet (Vitamin C)
cranberry fruit 500 mg chewable 500 mg PO DAILY Supplement 04/13/21 05/21/23 History
tablet
multivitamin 1 tab PO DAILY Supplement ##0 04/13/21 05/21/23 History
rhubarb root extract 4 mg tablet 1 tab PO DAILY Menopause relief 04/13/21 05/21/23 History
(Estroven Complete Menopause
Relief)
vitamin K2 45 mcg capsule 50 mcg PO DAILY ##0 04/13/21 05/21/23 History
calcium carbonate 500 mg PO DAILY Supplement 05/21/23 05/21/23 History
cholecalciferol (vitamin D3) 25 50 mcg PO DAILY Supplement 05/21/23 05/21/23 History
mcg (1,000 unit) tablet (Vitamin
D3)
latanoprost 0.005 % eye drops 1 drp BOTH EYES HS Eye Condition 05/21/23 05/21/23 History
aspirin 325 mg tablet 325 mg PO DAILY Blood clot 05/23/23 Rx
prevention/tx #30 tabs
acetaminophen 500 mg tablet (Pain 1,000 mg (2 x 500 mg) PO TID #100 05/24/23 Rx
Relief Extra Strength tabs
(acetaminophen))
oxycodone 5 mg tablet 5 mg PO Q4HPRN PRN moderate pain 05/24/23 Rx
#20 tabs
sennosides 8.6 mg-docusate sodium 1 tab PO BID #30 tabs 05/24/23 Rx
50 mg tablet (Senna Plus)
Review of Systems
-
History Source: Patient
All other systems: Negative unless noted
Constitutional: Fatigue (With onset of palpitations and heart racing)
EENT: No Symptoms
Respiratory: No Symptoms
Cardiac: Palpitations
Abdomen/GI: No Symptoms
: No Symptoms
Musculoskeletal: No Symptoms
Skin: No Symptoms
Neurological: No Symptoms
Hematologic/Lymphatic: No Symptoms
Physical Exam
Vital Signs
Temp Pulse Resp BP Pulse Ox
97.8 F 128 21 110/87 98
12/26/24 09:36 12/26/24 09:36 12/26/24 09:36 12/26/24 09:36 12/26/24 09:36
Lab Results
12/26/24 05:43
12/26/24 05:43
Troponin I < 0.012 ng/ml 12/26/24 05:43
Physical Exam
General: Well Developed, Well Nourished, No Apparent Distress and Comfortable
HEENT: Normocephalic, Anicteric and Moist Mucous Membranes
Respiratory: Clear and Non Labored Respirations
Cardiac: S1/S2 (Normal S1 and S2 no S3 no S4, there is grade 1/6 apical holosystolic murmur no rubs. Normal PMI) and Regular Rhythm
Breast: Deferred by me
GI: Soft, Non Tender, Non Distended and Normal Bowel Sounds
Rectal: Deferred by Provider
Musculoskeletal: No Clubbing, No Cyanosis and No Edema
Skin: Warm and Dry
Neuro: Awake, Alert, Oriented and AO x 3
Psych: Calm
Impression / Plan
-
Assessment:
Atrial fibrillation with rapid ventricular rates
This is the first clearly documented episode of atrial fibrillation though she has been having symptoms for several months
Presenting ECG demonstrates atrial fibrillation with ventricular rate of [address] and T wave abnormalities
EKG after cardioversion shows sinus rhythm with PACs.
Recommendations:
I had a long discussion with the patient and her as well as emergency room staff. I recommended that we proceed with electrical cardioversion for symptom control.
She underwent successful electrical cardioversion in the emergency department.
Intravenous Cardizem is discontinued
I recommended oral Cardizem 120 mg CD once daily for rate control should atrial fibrillation recur
Her [id number] score is 3 given age and female gender
I have also recommended Eliquis 5 mg twice daily, she is agreeable.
I discussed with her and her that our short-term/acute management will be rate control and oral anticoagulation for atrial fibrillation related thromboembolic risk reduction.
I will arrange outpatient visit to discuss long-term management options.
Total time spent today was 75 minutes in preparing to see the patient, seeing the patient and coordination of care. This included review of recent laboratory evaluations, cardiact testing, imaging studies, primary care rtecords, specialty
consultations, hospital records, as well as personally interviewing and examining the patient, which included discussion of their tests, review/ordering medications, and communicating with other healthcare professionals and also treatment planning
as well as counseling.
Data Reviewed
-
EKG: Tracing Personally Visualized and interpreted
Radiology: Report Reviewed by me
Medical Tests (Nuc Med, Echo etc): Report Reviewed by me
Labs: Labs Reviewed by me
Old Records: Reviewed
[2024-12-26] MEDS: ELIQUIS 5 MG PO (10:48)
== END 2024-12-26 11:23 | disposition home or self-care (01) ==
LOC: EMR 05:28
PROVIDERS: Emergency Medicine; EMERGENCY PHYSICIAN Emergency Medicine; FAMILY PHYSICIAN Internal Medicine Geriatric Medicine; OTHER PHYSICIAN Internal Medicine Cardiovascular Disease
DX: I48.91 Unspecified atrial fibrillation (principal); I31.39 Other pericardial effusion (noninflammatory); I34.1 Nonrheumatic mitral (valve) prolapse; I87.2 Venous insufficiency (chronic) (peripheral)
CPT/HCPCS: 92960; 99152; 96374; 99291; 80053; 84484; 85025; 93005

== ENCOUNTER → 2025-01-24 06:59 | Outpatient (REF) | payer MEDICARE, OTHER, SELFPAY ==
[2025-01-24 09:48] LABS: ALT (SGPT) 42 U/L (0-35); AST (SGOT) 41 U/L (14-36); GGTP 32 U/L (12-43)
== END ==
LOC: REG 06:59
PROVIDERS: ATTENDING PHYSICIAN Internal Medicine Geriatric Medicine
DX: I48.0 Paroxysmal atrial fibrillation (principal); I95.1 Orthostatic hypotension; R74.01 Elevation of levels of liver transaminase levels; E04.2 Nontoxic multinodular goiter
CPT/HCPCS: 36415; 82977; 84450; 84460

== ENCOUNTER → 2025-02-07 09:44 | Outpatient (REF) | payer MEDICARE, OTHER, SELFPAY | LOC: RAD 09:44 | PROVIDERS: ATTENDING PHYSICIAN Internal Medicine Geriatric Medicine | DX: I48.0 Paroxysmal atrial fibrillation (principal); I95.1 Orthostatic hypotension; R74.01 Elevation of levels of liver transaminase levels; E04.2 Nontoxic multinodular goiter | CPT/HCPCS: 76536; 76700 ==

== ENCOUNTER → 2025-02-10 12:53 | Outpatient (REF) | payer MEDICARE, OTHER, SELFPAY | LOC: WDC 12:53 | PROVIDERS: ATTENDING PHYSICIAN Internal Medicine Geriatric Medicine | DX: R92.2 Inconclusive mammogram (principal) | CPT/HCPCS: 76641 ==

== ENCOUNTER → 2025-02-21 09:07 | Outpatient (REF) | payer MEDICARE, OTHER, SELFPAY ==
[2025-02-21 09:38] LABS: Hematocrit 40.6 % (37.0-47.0); Hemoglobin 13.3 g/dL (12.0-16.0); Mean Corp Hgb Conc. 32.8 g/dL (33.0-37.0); Mean Corpuscular Volume 90.6 fL (81.0-99.0); Nucleated Red Blood Cells % 0 %; Platelet Count 179 10^3/uL (130-400); Red Cell Dist. Width 12.9 % (11.5-14.5)
[2025-02-21 09:47] LABS: INR 1.05; PT 14.3 Sec (11.4-14.6)
[2025-02-21 09:59] LABS: ALT (SGPT) 30 U/L (0-35); AST (SGOT) 33 U/L (14-36); Albumin 4.3 g/dl (3.5-5.0); Alkaline Phosphatase 67 U/L (38-126); Blood Urea Nitrogen 21 mg/dl (7-17); Calcium 9.6 mg/dl (8.4-10.2); Carbon Dioxide 31 mmol/L (22-30); Chloride 105 mmol/L (98-107); Glucose 90 mg/dl (70-99); Magnesium 1.8 mg/dl (1.6-2.3); Potassium 4.2 mmol/L (3.5-5.1); Sodium 140 mmol/L (135-145); Total Protein 7.1 g/dl (6.3-8.2); eGFR > 60.00
== END ==
LOC: SDSPAT 09:07
PROVIDERS: ATTENDING PHYSICIAN Internal Medicine Cardiovascular Disease; FAMILY PHYSICIAN Internal Medicine Geriatric Medicine; OTHER PHYSICIAN Internal Medicine Cardiovascular Disease
DX: I48.0 Paroxysmal atrial fibrillation (principal)
CPT/HCPCS: 36415; 75572; 80053; 83735; 85025; 85610; 86850; 86900; 86901; 93005; Q9967

== ENCOUNTER → 2025-03-04 06:37 | Outpatient (REF) | payer MEDICARE, OTHER, SELFPAY ==
[2025-03-04 08:53] LABS: ALT (SGPT) 24 U/L (0-35); AST (SGOT) 30 U/L (14-36)
[2025-03-04 14:17] LABS: GGTP 23 U/L (12-43)
== END ==
LOC: REG 06:37
PROVIDERS: ATTENDING PHYSICIAN Internal Medicine Geriatric Medicine
DX: R74.8 Abnormal levels of other serum enzymes (principal); E61.8 Deficiency of other specified nutrient elements
CPT/HCPCS: 36415; 82977; 84450; 84460

== ENCOUNTER → 2025-03-25 10:53 | Outpatient (REF) | payer MEDICARE, OTHER, SELFPAY ==
[2025-03-25 11:50] LABS: Hematocrit 39.6 % (37.0-47.0); Hemoglobin 12.9 g/dL (12.0-16.0); Mean Corp Hgb Conc. 32.6 g/dL (33.0-37.0); Mean Corpuscular Volume 89.0 fL (81.0-99.0); Nucleated Red Blood Cells % 0 %; Platelet Count 172 10^3/uL (130-400); Red Cell Dist. Width 12.8 % (11.5-14.5)
[2025-03-25 12:01] LABS: INR 1.08; PT 14.3 Sec (11.4-14.6)
[2025-03-25 12:15] LABS: ALT (SGPT) 51 U/L (0-35); AST (SGOT) 52 U/L (14-36); Albumin 4.3 g/dl (3.5-5.0); Alkaline Phosphatase 66 U/L (38-126); Blood Urea Nitrogen 20 mg/dl (7-17); Calcium 9.2 mg/dl (8.4-10.2); Carbon Dioxide 30 mmol/L (22-30); Chloride 104 mmol/L (98-107); Glucose 82 mg/dl (70-99); Magnesium 1.9 mg/dl (1.6-2.3); Potassium 4.7 mmol/L (3.5-5.1); Sodium 137 mmol/L (135-145); Total Protein 6.9 g/dl (6.3-8.2); eGFR > 60.00
== END ==
LOC: SDSPAT 10:53
PROVIDERS: ATTENDING PHYSICIAN Internal Medicine Cardiovascular Disease; FAMILY PHYSICIAN Internal Medicine Geriatric Medicine; OTHER PHYSICIAN Internal Medicine Cardiovascular Disease
DX: I48.0 Paroxysmal atrial fibrillation (principal)
CPT/HCPCS: 36415; 80053; 83735; 85025; 85610; 86850; 86900; 86901; 93306

== ENCOUNTER 2025-03-30 12:05 | Day surgery (SDC) | payer MEDICARE, OTHER, SELFPAY ==
--- NOTE | 2025-03-30 16:17 | ITS.CL.IMPLP ---
Plaster Caster - Implant Loop
Implant Loop
Procedure Report:
Date of Procedure: March 30, 2025
Primary Care Provider: Dr. Keo Lopez
Primary rn telephonic: Dr. Gabriela Gan
Procedure: Insertable Loop Recorder Implantation
Indication:
Atrial fibrillation
Procedure:
The patient was brought to the procedure area in a fasting state. The anterior chest was prepped and draped in standard sterile fashion. The fourth intercostal space along the left sternal border was identified and this area was anesthetized with 10
mL of 1% lidocaine. After gathering the skin in this area, a small punch incision was made at approx intercostal space 4-5 at left costo-sternal junction using the provided scalpel/punch tool. The loop recorder was loaded into the tunneling device.
A tunnel was created in the subcutaneous tissue at a 45� angle along the coronal plane away from the sternum and towards the left flank. The tunneling device was inverted and the plunger was depressed, inserting the loop recorder into the
subcutaneous space. The tunneling device was removed. Manual pressure provide hemostasis. Adequate signal was confirmed. The skin was closed with steri-strips. The estimated blood loss was < 1 cc. A clean dressing was placed over the wound.
There were no complications.
Implant:
Medtronic Reveal LINQ II
Conclusion: Uncomplicated implantation of loop recorder.
Recommendation: Routine ILR care.
Copy:
Dr. Keo Lopez
Dr. Gabriela Gan
== END 2025-03-30 16:05 | disposition home or self-care (01) ==
LOC: CATH 12:05
PROVIDERS: ATTENDING PHYSICIAN Internal Medicine Cardiovascular Disease; FAMILY PHYSICIAN Internal Medicine Geriatric Medicine; OTHER PHYSICIAN Internal Medicine Cardiovascular Disease
DX: I48.0 Paroxysmal atrial fibrillation (principal); Z09 Encounter for follow-up examination after completed treatment for conditions other than malignant neoplasm; Z79.01 Long term (current) use of anticoagulants; Z79.899 Other long term (current) drug therapy
CPT/HCPCS: 33285; C1764

== ENCOUNTER 2025-04-06 10:36 | Day surgery (SDC) | payer MEDICARE, OTHER, SELFPAY ==
[2025-02-21 09:14] VITALS: BMI 24.9
[2025-03-25 11:10] VITALS: BMI 24.2
[2025-04-06] VITALS (12 sets, daily range): BP systolic 101–137; BP diastolic 63–109; BMI 24.8
--- NOTE | 2025-04-06 07:59 | ITS.CL.ABL ---
Heating Technician - Ablation
Ablation
Procedure Report:
ELECTROPHYSIOLOGIC STUDY AND POSSIBLE ABLATION
DATE: April 06, 2025
Primary Care Provider: Dr. Ruben Lopez
Primary manager employment: Dr. Gabriela Gan
INDICATION:
Symptomatic Atrial Fibrillation.
Paroxysmal
HISTORY: See H and P.
Symptomatic AF, poorly controlled with attempted medical therapy.
She most recently required cardioversion for symptomatic atrial fibrillation in December 2024.
Of note, she has also had dizziness which does not seem to correlate to atrial fibrillation. A loop recorder was implanted March 30, 2025 to further evaluate.
She is enrolled in the [employer] clinical trial, SMILE AF
HAS-BLED: 1
Age
CHADSVASc: 3
Age
F Gender
PRESENTING RHYTHM: SR
HISTORY: See H and P.
Symptomatic AF, poorly controlled with attempted medical therapy.
ANTICOAGULATION: Apixaban 5 mg twice
'TIME-OUT': called and confirmed.
SEDATION/ANESTHESIA: provided via the anesthesia department using general anesthesia.
PROCEDURE:
Ultrasound Guidance with real-time visualization of needle insertion and vessel patency performed by nj for femoral venous Vascular Access.
Under real-time US guidance, the needle was advanced with negative pressure into the vein. The needle was seen entering the vessel lumen with a good return of dark red flow, the syringe was removed, non-pulsatile, dark red blood low was noted and
the wire was passed without difficulty, then the needle was removed. US confirmed the wire was in the vein, not going into an artery,
Images were taken and saved for the patient's permanent record. Imaging findings typical femoral venous anatomy. Direct visualization of needle puncture into the femoral vein was observed and recorded.
3 sheaths were inserted into the right femoral vein.
10 Fr, 10Fr, 7 Fr a 10fr sheath was then exchanged for the 13 Fr Agilis deflectable sheath and dilator over a wire.
A decapolar CS catheter was positioned within the CS for mapping and pacing.
The intracardiac ultrasound catheter was positioned in the RA for continuous intracardiac ultrasound imaging.
Heparin bolus and infusion to target ACT at 300 -350 seconds was administered. Transseptal puncture was performed. This entailed advancing a sheath with dilator into the superior vena cava and withdrawing both (monitoring intracardiac ultrasound,
fluoroscopy and tip pressure) with the tip oriented toward the atrial septum. The fossa ovalis was engaged (indicated by sudden displacement of the sheath tip as well as tenting of the fossa seen on intracardiac ultrasound).
The ubitus transseptal system was used. Left atrial catheter position was confirmed by echocardiographic imaging and fluoroscopy followed by RF delivery using the [employer] system resulting in successful LA access with pressure monitoring
demonstrating LA pressure waveforms (LA mean pressure 6mm Hg). The sheath was advanced over the dilator and positioned in the left atrium.
The [employer] Grid multipolar mapping catheter was initially positioned through the transseptal sheath for high density mapping.
Geometry and voltage mapping was performed using the [employer] multipolar grid catheter. Ensite-X was utilized for three-dimensional electroanatomical mapping.
A 3-D map was created using Ensite-X in Voxel mode. A 3-D reconstructed CT image was compared to the 3-D Navex map to assist in anatomic evaluation, mapping and ablation.
The [employer]) PFA catheter and system was used for cardiac ablation. Catheter positioning was guided and confirmed using both I.C.E. and fluoroscopy.
Ablation strategy consisted of PVI only as per randomization in the clinical trial protocol.
High density electroanatomical three-dimensional mapping demonstrated 4 PVs: LSPV, LIPV, RSPV, RIPV.
Post ablation mapping finds entrance and exit block at each of the pulmonary veins assessed at least 20 minutes after the last ablation delivery to any individual PV.
Programmed electrostimulation including burst atrial pacing as well the delivery of decremental extrastimuli down to atrial effective refractory period and no sustained arrhythmias could be induced.
As per protocol, the decapolar catheter was repositioned to pace the right phrenic nerve. Post ablation right phrenic nerve pacing demonstrates intact phrenic nerve conduction.
I.C.E. :
Pre-Ablation Post-Ablation
LVEF: 55 % 55 %
WMA: none none
Pericardial effusion: none none
LA Pressure 5 mmHg
COMPLICATIONS:
None
SUMMARY:
- Mapping and ablation to isolate the PVs resulting in electrical isolation of the pulmonary veins
- 3-D Electroanatomical Mapping
- Intracardiac Ultrasound
- Ultrasound guidance for vascular access
Post ablation, I discussed today's findings and results with the patient's , Toni.
RECOMMENDATIONS:
- Observe in monitored bed.
- Maintain oral anticoagulation.
- Continue diltiazem HCl 120 mg daily
- Office visit with me is scheduled for July 14, 2025
- Continue cardiovascular care with Dr. Gabriela Gan
Copy to:
Primary Care Provider: Dr. Ruben Lopez
Primary manager employment: Dr. Gabriela Gan
[2025-04-06] MEDS: TYLENOL 1000 MG PO (12:10)
--- NOTE | 2025-04-06 16:08 | W.PN.UPDATE ---
Update Note
Progress Note Update
75 yo WF s/p PVI (same day). She denies cp, sob, sundar clears, EKG SB, R fem vascade c/d/i no HT, soft. She is in the SMILE-AF research study and her Linq placed 03/30 site c/d/i, steri strips intact with small area of ecchymosis. She will resume
Eliquis tonight after 9p. She will continue diltiazem. Activity restrictions reviewed. She will f/u Dr. Carvalho in 3 mo. She will have blood drawn CMP, CBC at 5pm per research protocol. She is for d/c home after 630p if groin stable and voiding.
[2025-04-07 06:22] LABS: ACT-LR - POC 260 Seconds (116-155)
[2025-04-07 06:22] LABS: ACT-LR - POC 311 Seconds (116-155)
== END 2025-04-06 18:48 | disposition home or self-care (01) ==
LOC: CATH 10:36
PROVIDERS: ATTENDING PHYSICIAN Internal Medicine Cardiovascular Disease; FAMILY PHYSICIAN Internal Medicine Geriatric Medicine; OTHER PHYSICIAN Internal Medicine Cardiovascular Disease
DX: I48.0 Paroxysmal atrial fibrillation (principal); Z00.6 Encounter for examination for normal comparison and control in clinical research program; F41.9 Anxiety disorder, unspecified; R74.01 Elevation of levels of liver transaminase levels; E04.1 Nontoxic single thyroid nodule; M85.80 Other specified disorders of bone density and structure, unspecified site; D64.9 Anemia, unspecified; I87.2 Venous insufficiency (chronic) (peripheral); Z79.01 Long term (current) use of anticoagulants
CPT/HCPCS: C1732; C1760; C1894; C1769; C1730; C1892; 80053; 85025; 85347; 93005; 93656; C1733

== ENCOUNTER → 2025-06-10 16:11 | Outpatient (REF) | payer MEDICARE, OTHER, SELFPAY ==
[2025-06-10 17:05] LABS: ALT (SGPT) 36 U/L (0-35); AST (SGOT) 35 U/L (14-36); Albumin 3.9 g/dl (3.5-5.0); Alkaline Phosphatase 61 U/L (38-126); Blood Urea Nitrogen 20 mg/dl (7-17); Calcium 9.4 mg/dl (8.4-10.2); Carbon Dioxide 29 mmol/L (22-30); Chloride 103 mmol/L (98-107); Glucose 90 mg/dl (70-99); Potassium 4.5 mmol/L (3.5-5.1); Sodium 137 mmol/L (135-145); Total Protein 6.6 g/dl (6.3-8.2); eGFR 58.02
== END ==
LOC: REG 16:11
PROVIDERS: ATTENDING PHYSICIAN Internal Medicine Geriatric Medicine
DX: E61.8 Deficiency of other specified nutrient elements (principal); I48.0 Paroxysmal atrial fibrillation; I95.1 Orthostatic hypotension; R74.01 Elevation of levels of liver transaminase levels; E04.2 Nontoxic multinodular goiter; E55.9 Vitamin D deficiency, unspecified; J06.9 Acute upper respiratory infection, unspecified; R73.01 Impaired fasting glucose; Z13.89 Encounter for screening for other disorder; B30.1 Conjunctivitis due to adenovirus
CPT/HCPCS: 36415; 80053